=== PATIENT | female | born 1970 | race Caucasian/White ===

== ENCOUNTER 2020-04-10 12:48 | Emergency (ER) | payer BC ==
[2020-04-10] MEDS ORDERED: Sodium Chloride 0.9% 10 ML Syringe FLUSH PRN (13:03)
--- NOTE | 2020-04-10 13:18 | CT ---
EXAMINATION: Head wo Cont SEX: Female AGE: 49 years CLINICAL HISTORY: 49-year-old female with three-hour history of slurred speech and right-sided numbness. stroke code (patient scan 1303 hours; interpretation 1315 hours) Scan technique: Volume acquisition of data emergency unenhanced CT scan of the head and brain obtained with patient lying supine on the Siemens multislice scanner [place], [place]. All data archived in the PACS system for storage, reformatting and study (bone/brain windows). INTERPRETATION: 1. Subtle tiny areas of decreased attenuation scattered in the periventricular white matter of both hemispheres consistent with microvascular ischemic disease. No surrounding edema or mass effect. 2. No sign of acute intracerebral, intraventricular or subarachnoid bleed. 3. No supratentorial or posterior fossa mass lesion. 4. No hydrocephalus. 5. Uniformly thick bony calvarium and symmetric clear pneumatization of the paranasal/mastoid sinuses. 6. No skull fracture, underlying brain contusion or abnormal extracerebral/intracranial epidural or subdural hematoma. CONCLUSION: Microvascular ischemic changes. No intracranial mass, hydrocephalus or bleed. 1. CONCLUSION:
[2020-04-10 13:34] LABS: ANION GAP 11.7 mEq/L (7-13); CHLORIDE,CL 105 mmol/L (98-107); SODIUM,NA 141 mmol/L (136-145)
[2020-04-10] MEDS ORDERED: Aspirin 81 MG Tab.Chew PO ONE (13:53)
[2020-04-10 14:30] LABS: PTT,PARTIAL THROMBOPLSTIN TIME 25.1 SEC (22.0-34.0)
--- NOTE | 2020-04-11 14:21 | EDM.PDOC ---
ED HPI GENERAL MEDICAL PROBLEM - General Chief Complaint: Neuro Symptoms/Deficits Stated Complaint: ONSETS OF NUMBNESS RIGHT ARM RIGHT LEG Time Seen by Provider: 04/10/20 15:10 Source of Information: Reports: Patient History Limitations: Reports: No Limitations - History of Present Illness INITIAL COMMENTS - FREE TEXT/NARRATIVE: Patient comes emergency department today with complaints of right-sided pain and weakness. This patient acutely at 1015 today suddenly had some altered sensation of her right arm and her right leg. It was difficult for her to hold a pen into her right is normal. Her right leg felt "funny". She also felt like she had some shooting pain in her arm and her leg. Shooting pain is resolved prior to arrival. She also feels that it is hard for her to get the words out that she wants to say. She denies any confusion. No headache. No visual acuity changes. No diplopia. No head neck or back trauma. No chest pain or shortness of breath or difficulty breathing. No palpitations. No syncope. No cough or congestion. No fever no chills. No COVID exposure no COVID concerns. No abdominal pain nausea or vomiting. No hematuria dysuria or urinary frequency. She does have a history of migraines. She does not have a headache or any of her typical migraine symptoms. She just recently discontinued her Topamax and is started on Botox injections for her migraines. She has never had any paresthesias such as this in the past when she has had a migraine. - Related Data Allergies Allergy/AdvReac Type Severity Reaction Status Date / Time No Known Allergies Allergy Verified 04/10/20 14:18 Home Meds: Home Meds Levothyroxine 112 mcg PO ACBREAKFAST 04/10/20 [History] Liothyronine [Cytomel] 5 mcg PO DAILY 04/10/20 [History] Progesterone, Micronized [Progesterone] 100 mg PO DAILY 04/10/20 [History] Propranolol [Inderal LA 24 Hr] 80 mg PO DAILY 04/10/20 [History] SUMAtriptan [Imitrex] 50 mg PO DAILY PRN 04/10/20 [History] Past Medical History Cardiovascular History: Reports: Hypertension Genitourinary History: Reports: Other (See Below) Other Genitourinary History: diet controlled diabetic Endocrine/Metabolic History: Reports: Hypothyroidism Social & Family History - Family History Family Medical History: Unobtainable Cardiac: Reports: [place] Neurological: Reports: CVA - Tobacco Use Smoking Status *Q: Never Smoker Second Hand Smoke Exposure: No - Caffeine Use Caffeine Use: Reports: Coffee - Recreational Drug Use Recreational Drug Use: No ED ROS GENERAL - Review of Systems Review Of Systems: Comprehensive ROS is negative, except as noted in HPI. ED EXAM, NEURO - Physical Exam Exam: See Below Exam Limited By: No Limitations General Appearance: Alert, WD/WN, No Apparent Distress Ears: Normal External Exam Nose: Normal Inspection Throat/Mouth: Normal Inspection Head Exam: Atraumatic, Normocephalic Neck: Normal Inspection, Supple, Non-Tender, Full Range of Motion Respiratory/Chest: No Respiratory Distress, Lungs Clear, Normal Breath Sounds, N o Accessory Muscle Use, Chest Non-Tender Cardiovascular: Normal Peripheral Pulses, Regular Rate, Rhythm GI/Abdominal: Normal Bowel Sounds, Soft, Non-Tender (Female) Exam: Deferred Rectal (Female) Exam: Deferred Neurological: Alert, Normal Mood/Affect, Normal Dorsiflexion, CN II-XII Intact, Normal Plantar Flexion, Normal Gait, Normal Reflexes, No Motor/Sensory Deficits, Oriented x 3, Other (NIH stroke scale of 0. ) Back Exam: Normal Inspection, Full Range of Motion Extremities: Normal Inspection, Normal Range of Motion, Non-Tender, No Pedal Edema, Normal Capillary Refill Psychiatric: Normal Affect, Normal Mood Skin Exam: Warm, Dry, Intact, Normal Color, No Rash EKG INTERPRETATION EKG Date: 04/11/20 Time: 13:20 Rhythm: NSR Rate (Beats/Min): 60 [place]: Normal P-Wave: Present QRS: Normal ST-T: Normal QT: Normal Course - Vital Signs Last Recorded V/S: Last Vital Signs Temp 97.9 F 04/10/20 13:10 Pulse 66 04/10/20 13:10 Resp 16 04/10/20 13:10 BP 130/78 04/10/20 13:10 Pulse Ox 99 04/10/20 13:10 - Orders/Labs/Meds Labs: Laboratory Tests 04/10/20 04/10/20 04/10/20 Range/Units 13:04 13:06 13:06 WBC 7.8 (5.0-10.0) 10^3/uL RBC 4.14 L (4.2-5.4) 10^6/uL Hgb 13.3 (12.0-16.0) g/dL Hct 39.4 (37.0-47.0) % MCV 95.2 (80-100) fL MCH 32.1 (27.0-34.0) pg MCHC 33.8 (33.0-35.0) g/dL Plt Count 268 (150-450) 10^3/uL Neut % (Auto) 58.9 (42.2-75.2) % Lymph % (Auto) 29.4 (20.5-50.1) % [place] % (Auto) 9.8 H (2-8) % Eos % (Auto) 1.4 (1.0-3.0) % Baso % (Auto) 0.5 (0.0-1.0) % PT 9.7 (9.0-12.0) SEC INR 1.0 (0.9-1.2) APTT 25.1 (22.0-34.0) SEC Sodium (136-145) mmol/L Potassium (3.5-5.1) mmol/L Chloride (98-107) mmol/L Carbon Dioxide (21-32) mmol/L Anion Gap (7-13) mEq/L BUN (7-18) mg/dL Creatinine (0.55-1.02) mg/dL Est Cr Clr Drug Dosing Estimated GFR (MDRD) BUN/Creatinine Ratio (No establ ref range) Glucose (74-99) mg/dL POC Glucose 93 (70-105) mg/dl Calcium (8.5-10.1) mg/dL Magnesium (1.8-2.4) mg/dL Total Bilirubin (0.2-1.0) mg/dL AST (15-37) U/L ALT (14-59) U/L Alkaline Phosphatase (46-116) U/L Troponin I (0.000-0.056) ng/mL Total Protein (6.4-8.2) g/dL Albumin (3.4-5.0) g/dL Globulin Albumin/Globulin Ratio 04/10/20 Range/Units 13:06 WBC (5.0-10.0) 10^3/uL RBC (4.2-5.4) 10^6/uL Hgb (12.0-16.0) g/dL Hct (37.0-47.0) % MCV (80-100) fL MCH (27.0-34.0) pg MCHC (33.0-35.0) g/dL Plt Count (150-450) 10^3/uL Neut % (Auto) (42.2-75.2) % Lymph % (Auto) (20.5-50.1) % [place] % (Auto) (2-8) % Eos % (Auto) (1.0-3.0) % Baso % (Auto) (0.0-1.0) % PT (9.0-12.0) SEC INR (0.9-1.2) APTT (22.0-34.0) SEC Sodium 141 (136-145) mmol/L Potassium 3.7 (3.5-5.1) mmol/L Chloride 105 (98-107) mmol/L Carbon Dioxide 28 (21-32) mmol/L Anion Gap 11.7 (7-13) mEq/L BUN 14 (7-18) mg/dL Creatinine 0.78 (0.55-1.02) mg/dL Est Cr Clr Drug Dosing TNP Estimated GFR (MDRD) > 60 BUN/Creatinine Ratio 17.9 (No establ ref range) Glucose 96 (74-99) mg/dL POC Glucose (70-105) mg/dl Calcium 8.7 (8.5-10.1) mg/dL Magnesium 2.1 (1.8-2.4) mg/dL Total Bilirubin 0.3 (0.2-1.0) mg/dL AST 25 (15-37) U/L ALT 26 (14-59) U/L Alkaline Phosphatase 66 (46-116) U/L Troponin I < 0.017 (0.000-0.056) ng/mL Total Protein 7.5 (6.4-8.2) g/dL Albumin 3.8 (3.4-5.0) g/dL Globulin 3.7 Albumin/Globulin Ratio 1.0 Meds: Medications Discontinued Medications Generic Name Dose Route Start Last Admin Trade Name Freq PRN Reason Stop Dose Admin Aspirin 81 mg 04/10/20 13:53 04/10/20 14:15 Aspirin PO 04/10/20 13:54 81 mg ONETIME ONE Administration Sodium Chloride 10 ml 04/10/20 13:03 04/10/20 14:15 Saline Flush FLUSH 10 ml ASDIRECTED PRN Administration Keep Vein Open - Radiology Interpretation Free Text/Narrative:: CT of the head per radiology. No intercranial mass hydrocephalus or bleed. Subtle tiny areas of decreased attenuation scattered in the zach-ventricular white matter of both hemispheres consistent with microvascular ischemic disease no surrounding edema or mass-effect. - Re-Assessments/Exams Free Text/Narrative Re-Assessment/Exam: 04/11/20 Due to the patient's presentation and concerns of altered sensation to her right arm and right lower extremity as well as alterations of fine motor skills. A stroke code was called. EKG shows a normal sinus rhythm in the rate in the 60s without any ST elevation or depression. Bedside glucose is appropriate. Emergent CT scan of the head shows shows no intracranial mass hydrocephalus or bleed. Some subtle tiny areas of decreased attenuation in the periventricular white matter bilaterally consistent with microvascular ischemic changes. NIH stroke scale is 0 I called and spoke with Dr. Chun the neurologist apron trimmer at the stroke center in [place]. HPI ER COURSE findings and concerns were relayed to him. He would like a baby aspirin given and to be transfered to [place] further care and workup. I discussed the concerns of the changes of her neurological status with the patient. Although her NIH stroke scale is 0 we would still need an MRI to ensure that she is not having some type of ischemic event. She is understanding of this her questions are answered and she is comfortable with transfer to [facility] at this time. Departure - Departure Time of Disposition: 14:30 Disposition: DC/Tfer to Acute Hospital 02 Clinical Impression: CVA (cerebral vascular accident) Qualifiers: CVA mechanism: unspecified Qualified Code(s): I63.9 - Cerebral infarction, unspecified - Discharge Information Referrals: Carmen Recio NP [Primary Care Provider] - Forms: ED Department Discharge Sepsis Event Note (ED) - Evaluation Sepsis Screening Result: No Definite Risk
== END 2020-04-10 15:10 ==
LOC: DL.ED 12:48
DX: I63.9 Cerebral infarction, unspecified (principal); I10 Essential (primary) hypertension; E03.9 Hypothyroidism, unspecified; E11.9 Type 2 diabetes mellitus without complications; Z79.899 Other long term (current) drug therapy
CPT/HCPCS: 36415; 70450; 80053; 82962; 83735; 84484; 85025; 85610; 85730; 93005; 99285-25; A9270-GY

== ENCOUNTER 2020-06-09 08:14 | Day surgery (SDC) | payer BC ==
[2020-06-09] MEDS ORDERED: Sodium Chloride 0.9% 1,000 ML IV ONE (08:56)
[2020-06-09] MEDS ORDERED: fentaNYL 100 MCG/2 ML SDV IVPUSH ONE ×2 (08:56→10:23)
--- NOTE | 2020-06-09 09:03 | EDM.PDOC ---
<Jaquelin Garcia - Last Filed: 06/09/20 14:12> ED HPI GENERAL MEDICAL PROBLEM - General Chief Complaint: Abdominal Pain Stated Complaint: LOWER RIGHT ABDOMINAL PAIN Time Seen by Provider: 06/09/20 08:50 Source of Information: Reports: Patient, RN, RN Notes Reviewed History Limitations: Reports: No Limitations - History of Present Illness INITIAL COMMENTS - FREE TEXT/NARRATIVE: 50 year old female presents to ED ambulatory with c/o RLQ pain since yesterday am around 1100. reports pain as a sharp, stabbing pain, rates 8/10, pain has been constant since onset. states she took some ibuprofen and applied a heating pad with minimal relief. pain with position adjustment/movement. reports a low grade fever of 99F yesterday, notes chills this am. denies pain radiation. LBM 11, normal bowel movement. denies n/v/d or constipation, denies hematemesis, hematochezia, or dysuria/hematuria. reports C-sections as only surgical hx. reports hx of migraines. last oral intake per pt report was 3 am. Onset: Other Onset Date: 06/08/20 Onset Time: 11:00 Location: Reports: Abdomen Quality: Reports: Sharp, Stabbing Severity: Severe Treatments RECREATIONAL THERAPIST: Reports: Heat Therapy, NSAIDS Right Lower Abdomen Pain Score (Numeric/FACES): 8 - Related Data Allergies Allergy/AdvReac Type Severity Reaction Status Date / Time No Known Allergies Allergy Verified 06/09/20 08:25 Home Meds: Home Meds Levothyroxine 112 mcg PO ACBREAKFAST 04/10/20 [History] Liothyronine [Cytomel] 5 mcg PO DAILY 04/10/20 [History] Progesterone, Micronized [Progesterone] 100 mg PO DAILY 04/10/20 [History] SUMAtriptan [Imitrex] 50 mg PO DAILY PRN 04/10/20 [History] Ezetimibe 10 mg PO DAILY 06/09/20 [History] Ubrogepant [Ubrelvy] 100 mg PO ASDIRECTED PRN 06/09/20 [History] atorvaSTATin [Lipitor] 40 mg PO DAILY 06/09/20 [History] metFORMIN HCl [Metformin HCl ER] 500 mg PO DAILY 06/09/20 [History] Past Medical History HEENT History: Reports: None Cardiovascular History: Reports: Hypertension Respiratory History: Reports: None Gastrointestinal History: Reports: None Genitourinary History: Reports: Other (See Below) Other Genitourinary History: diet controlled diabetic 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: Reports: None Musculoskeletal History: Reports: None Neurological History: Reports: None Psychiatric History: Reports: None Endocrine/Metabolic History: Reports: Hypothyroidism Hematologic History: Reports: None Immunologic History: Reports: None Oncologic (Cancer) History: Reports: None Dermatologic History: Reports: None - Infectious Disease History Infectious Disease History: Reports: None - Past Surgical History Head Surgeries/Procedures: Reports: None Social & Family History - Family History Family Medical History: Unobtainable Cardiac: Reports: [place] Neurological: Reports: CVA - Tobacco Use Tobacco Use Status *Q: Never Tobacco User Second Hand Smoke Exposure: No - Caffeine Use Caffeine Use: Reports: Tea - Alcohol Use Days Per Week of Alcohol Use: 4 Number of Drinks Per Day: 2 Total Drinks Per Week: 8 - Recreational Drug Use Recreational Drug Use: No ED ROS GENERAL - Review of Systems Review Of Systems: Comprehensive ROS is negative, except as noted in HPI. ED EXAM, GI/ABD - Physical Exam Exam: See Below Exam Limited By: No Limitations General Appearance: Alert, WD/WN, No Apparent Distress Eyes: Bilateral: Normal Appearance, EOMI Ears: Normal External Exam, Hearing Grossly Normal Nose: Normal Inspection, No Blood Throat/Mouth: Normal Inspection, Normal Voice, No Airway Compromise Head: Atraumatic, Normocephalic Neck: Normal Inspection, Supple, Non-Tender, Full Range of Motion Respiratory/Chest: No Respiratory Distress, Lungs Clear, Normal Breath Sounds, Chest Non-Tender Cardiovascular: Normal Peripheral Pulses, Regular Rate, Rhythm, No Edema, No Murmur GI/Abdominal Exam: Soft, No Distention, Guarding, Rebound, Tender, Abnormal Bowel Sounds (hypoactive RLQ, active LLQ). No: Non-Tender (Female) Exam: Deferred Rectal (Female) Exam: Deferred Back Exam: Normal Inspection, Full Range of Motion. No: CVA Tenderness (R) Extremities: Normal Inspection, Normal Range of Motion, Non-Tender, No Pedal Edema, Normal Capillary Refill Neurological: Alert, Oriented, CN II-XII Intact, Normal Cognition, No Motor/Sensory Deficits Psychiatric: Normal Affect, Normal Mood, Tearful (with pain) Skin Exam: Warm, Dry, Intact, Normal Color Lymphatic: No Adenopathy Departure - Departure Time of Disposition: 12:28 Disposition: DC/Tfer to Other 70 Clinical Impression: Appendicitis Qualifiers: Appendicitis type: acute appendicitis Acute appendicitis type: with localized peritonitis Appendicitis gangrene presence: without gangrene Appendicitis perforation presence: without perforation Appendicitis abscess presence: without abscess Qualified Code(s): K35.30 - Acute appendicitis with localized periton itis, without perforation or gangrene - Discharge Information Sepsis Event Note (ED) - Evaluation Sepsis Screening Result: No Definite Risk <Gayla Chavis - Last Filed: 06/09/20 14:44> Course - Vital Signs Last Recorded V/S: Last Vital Signs Temp 98.0 F 06/09/20 08:31 Pulse 80 06/09/20 13:55 Resp 14 06/09/20 13:55 BP 117/51 L 06/09/20 13:55 Pulse Ox 92 L 06/09/20 13:55 - Orders/Labs/Meds Orders: Active Orders 24 hr Category Date Time Status Patient Status [ADT] Routine ADT 06/09/20 13:29 Active Patient Status [ADT] Routine ADT 06/09/20 13:30 Active Ambulate [RC] ASDIRECTED Care 06/09/20 13:30 Active Antiembolic Devices [RC] PER UNIT ROUTINE Care 06/09/20 13:34 Active Oxygen Therapy [RC] PRN Care 06/09/20 13:30 Active Pulse Oximetry [RC] CONTINUOUS Care 06/09/20 13:30 Active RT Incentive Spirometry [RC] ASDIRECTED Care 06/09/20 13:30 Active Vital Signs [RC] PER UNIT ROUTINE Care 06/09/20 13:30 Active Full Liquid Diet [DIET] Diet 06/09/20 Dinner Active CULTURE BLOOD [BC] Stat Lab 06/09/20 09:22 Received CULTURE BLOOD [BC] Stat Lab 06/09/20 09:26 Results CULTURE URINE [RM] Stat Lab 06/09/20 09:18 Received Acetaminophen/oxyCODONE [Percocet 325-5 MG] Med 06/09/20 13:30 Active 1 tab PO Q4H PRN Morphine Med 06/09/20 13:30 Active 2 mg IVPUSH Q1H PRN Sodium Chloride 0.9% [Saline Flush] Med 06/09/20 13:34 Active 10 ml FLUSH ASDIRECTED PRN Blood Culture x2 Reflex Set [OM.PC] Stat Oth 06/09/20 08:56 Ordered Convert IV to Saline Lock [OM.PC] Routine Oth 06/09/20 13:34 Ordered Sequential Compression Device [OM.PC] Routine Oth 06/09/20 13:34 Ordered Resuscitation Status Routine Resus Stat 06/09/20 13:30 Ordered Medication Orders Morphine Sulfate (Morphine) 2 mg IVPUSH Q1H PRN PRN Reason: Pain (severe 7-10) Oxycodone/Acetaminophen (Percocet 325-5 Mg) 1 tab PO Q4H PRN PRN Reason: Pain (moderate 4-6) Sodium Chloride (Saline Flush) 10 ml FLUSH ASDIRECTED PRN PRN Reason: Keep Vein Open Labs: Laboratory Tests 06/09/20 06/09/20 06/09/20 Range/Units 09:18 09:18 09:22 WBC 13.7 H (5.0-10.0) 10^3/uL RBC 4.14 L (4.2-5.4) 10^6/uL Hgb 13.2 (12.0-16.0) g/dL Hct 38.8 (37.0-47.0) % MCV 93.7 (80-100) fL MCH 31.9 (27.0-34.0) pg MCHC 34.0 (33.0-35.0) g/dL Plt Count 320 (150-450) 10^3/uL Neut % (Auto) 78.3 H (42.2-75.2) % Lymph % (Auto) 10.6 L (20.5-50.1) % [place] % (Auto) 10.6 H (2-8) % Eos % (Auto) 0.2 L (1.0-3.0) % Baso % (Auto) 0.3 (0.0-1.0) % Sodium (136-145) mmol/L Potassium (3.5-5.1) mmol/L Chloride (98-107) mmol/L Carbon Dioxide (21-32) mmol/L Anion Gap (7-13) mEq/L BUN (7-18) mg/dL Creatinine (0.55-1.02) mg/dL Est Cr Clr Drug Dosing mL/min Estimated GFR (MDRD) BUN/Creatinine Ratio (No establ ref range) Glucose (74-99) mg/dL Lactic Acid (0.4-2.0) mmol/L Calcium (8.5-10.1) mg/dL Total Bilirubin (0.2-1.0) mg/dL AST (15-37) U/L ALT (14-59) U/L Alkaline Phosphatase (46-116) U/L Total Protein (6.4-8.2) g/dL Albumin (3.4-5.0) g/dL Globulin Albumin/Globulin Ratio Urine Color Yellow (YELLOW) Urine Appearance Clear (CLEAR) Urine pH 8.5 (5.0-9.0) Ur Specific [place] 1.020 (1.005-1.030) Urine Protein Negative (NEGATIVE) Urine Glucose (UA) Negative (NEGATIVE) Urine Ketones 15 H (NEGATIVE) Urine Occult Blood Trace-intact H (NEGATIVE) Urine Nitrite Positive H (NEGATIVE) Urine Bilirubin Negative (NEGATIVE) Urine Urobilinogen 0.2 (0.2-1.0) mg/dL Ur Leukocyte Esterase Negative (NEGATIVE) Urine RBC 0-5 /HPF Urine WBC Not seen (0-5/HPF) /HPF Ur Epithelial Cells Few (NOT SEEN) /HPF Urine Bacteria Moderate H (0-FEW/HPF) /HPF Urine HCG, Qual Negative SARS CoV-2 RNA Rapid MARIBEL (NEGATIVE) 06/09/20 06/09/20 06/09/20 Range/Units 09:22 09:22 11:26 WBC (5.0-10.0) 10^3/uL RBC (4.2-5.4) 10^6/uL Hgb (12.0-16.0) g/dL Hct (37.0-47.0) % MCV (80-100) fL MCH (27.0-34.0) pg MCHC (33.0-35.0) g/dL Plt Count (150-450) 10^3/uL Neut % (Auto) (42.2-75.2) % Lymph % (Auto) (20.5-50.1) % [place] % (Auto) (2-8) % Eos % (Auto) (1.0-3.0) % Baso % (Auto) (0.0-1.0) % Sodium 137 (136-145) mmol/L Potassium 3.6 (3.5-5.1) mmol/L Chloride 101 (98-107) mmol/L Carbon Dioxide 27 (21-32) mmol/L Anion Gap 12.6 (7-13) mEq/L BUN 9 (7-18) mg/dL Creatinine 0.90 (0.55-1.02) mg/dL Est Cr Clr Drug Dosing 57.06 mL/min Estimated GFR (MDRD) > 60 BUN/Creatinine Ratio 10.0 (No establ ref range) Glucose 112 H (74-99) mg/dL Lactic Acid 1.0 (0.4-2.0) mmol/L Calcium 9.1 (8.5-10.1) mg/dL Total Bilirubin 0.8 (0.2-1.0) mg/dL AST 16 (15-37) U/L ALT 24 (14-59) U/L Alkaline Phosphatase 76 (46-116) U/L Total Protein 7.3 (6.4-8.2) g/dL Albumin 3.5 (3.4-5.0) g/dL Globulin 3.8 Albumin/Globulin Ratio 0.9 Urine Color (YELLOW) Urine Appearance (CLEAR) Urine pH (5.0-9.0) Ur Specific [place] (1.005-1.030) Urine Protein (NEGATIVE) Urine Glucose (UA) (NEGATIVE) Urine Ketones (NEGATIVE) Urine Occult Blood (NEGATIVE) Urine Nitrite (NEGATIVE) Urine Bilirubin (NEGATIVE) Urine Urobilinogen (0.2-1.0) mg/dL Ur Leukocyte Esterase (NEGATIVE) Urine RBC /HPF Urine WBC (0-5/HPF) /HPF Ur Epithelial Cells (NOT SEEN) /HPF Urine Bacteria (0-FEW/HPF) /HPF Urine HCG, Qual SARS CoV-2 RNA Rapid MARIBEL Negative (NEGATIVE) Meds: Medications Generic Name Dose Route Start Last Admin Trade Name Freq PRN Reason Stop Dose Admin Morphine Sulfate 2 mg 06/09/20 13:30 Morphine IVPUSH Q1H PRN Pain (severe 7-10) Oxycodone/Acetaminophen 1 tab 06/09/20 13:30 Percocet 325-5 Mg PO Q4H PRN Pain (moderate 4-6) Sodium Chloride 10 ml 06/09/20 13:34 Saline Flush FLUSH ASDIRECTED PRN Keep Vein Open Discontinued Medications Generic Name Dose Route Start Last Admin Trade Name Berkley PRN Reason Stop Dose Admin Fentanyl 50 mcg 06/09/20 08:56 06/09/20 09:10 Sublimaze IVPUSH 06/09/20 08:57 50 mcg ONETIME ONE Administration Fentanyl 50 mcg 06/09/20 10:23 06/09/20 10:31 Sublimaze IVPUSH 06/09/20 10:24 50 mcg ONETIME ONE Administration Sodium Chloride 1,000 mls @ 999 mls/hr 06/09/20 08:56 06/09/20 09:10 Normal Saline IV 06/09/20 09:56 999 mls/hr .BOLUS ONE Administration Piperacillin Sod/Tazobactam 100 mls @ 200 mls/hr 06/09/20 11:39 06/09/20 12:28 Sod 3.375 gm/ Sodium Chloride IV 06/09/20 12:08 200 mls/hr ONETIME ONE Administration Iopamidol 100 ml 06/09/20 10:36 06/09/20 10:57 Isovue-300 (61%) IVPUSH 06/09/20 10:37 75 ml ONETIME ONE Administration - Radiology Interpretation Free Text/Narrative:: CT abdomen/pelvis with contrast: Acute appendicitis The radiologist report - Re-Assessments/Exams Free Text/Narrative Re-Assessment/Exam: 06/09/20 09:18 I personally performed or re-performed the physical examination and medical decision making. I have verified all student documentation or findings, including history, physical exam and/or medical decision making. 06/09/20 11:41 Dr. Alcala was here to evaluate the patient. Patient will be taken to the OR. Departure - Departure Condition: Fair - Discharge Information *PRESCRIPTION DRUG MONITORING PROGRAM REVIEWED*: No *COPY OF PRESCRIPTION DRUG MONITORING REPORT IN PATIENT KENNEDY: No Sepsis Event Note (ED) - Focused Exam Vital Signs: Vital Signs Temp Pulse Pulse Resp BP Pulse Ox Pulse Ox 06/09/20 13:55 80 14 117/51 L 92 L 06/09/20 13:50 81 16 104/56 L 92 L 06/09/20 13:49 93 L 06/09/20 13:45 84 17 91/52 L 100 06/09/20 13:44 100 06/09/20 13:40 83 16 92/48 L 100 06/09/20 13:35 78 14 92/53 L 100 06/09/20 13:30 80 14 86/52 L 100 06/09/20 13:27 79 15 83/50 L 100 06/09/20 13:26 100 06/09/20 08:31 98.0 F 98 16 139/91 H 98
[2020-06-09 09:51] LABS: ANION GAP 12.6 mEq/L (7-13); CHLORIDE,CL 101 mmol/L (98-107); SODIUM,NA 137 mmol/L (136-145)
[2020-06-09] MEDS ORDERED: Iopamidol 612 MG/ML 100 ML Bottle IVPUSH ONE (10:36)
--- NOTE | 2020-06-09 11:21 | CT ---
EXAMINATION: Abdomen Pelvis w Cont SEX: Female AGE: 50 years CLINICAL HISTORY: 50-year-old 165 pound afebrile female with RIGHT LOWER QUADRANT PAIN. WBC 13,700. Scan technique: Volume acquisition of data from the abdomen and pelvis obtained without oral contrast but during the intravenous administration 75 cc nonionic Isovue contrast 3 cc/s via injector while patient was lying supine on the Siemens multi slice scanner [place], [place]. All data archived in the PACS system for storage, reformatting axial/sagittal/coronal planes and study. Interpretation: Abnormal. 1. *Inflamed (wall thickening) appendix RLQ with calcified appendicolith and surrounding inflammatory "dirty" periappendiceal fat. No abscess or periappendiceal fluid. No sign of mechanical bowel obstruction. 2. Gallbladder, liver, stomach (small hiatus hernia), spleen, pancreas and adrenal glands unremarkable. 3. No sign of abdominal or pelvic mass lesion (retroverted uterus). No mesenteric or retroperitoneal lymphadenopathy. No sign of mechanical bowel obstruction, ascites or free intraperitoneal air. 4. Normal caliber aortoiliac vessels. Mild retrolisthesis L4 and signs of chronic L4-5 disc disease. 5. Lung bases clear. Normal cardiac silhouette. No pericardial or pleural effusion. CONCLUSION: ACUTE APPENDICITIS.
[2020-06-09] MEDS ORDERED: Piperacillin/Tazobactam 3.375 GM in Sodium Chloride 0.9% 100 ML IV ONE (11:39)
--- NOTE | 2020-06-09 12:43 | HP ---
INTRODUCTION: This 50-year-old female has had a day-long history of abdominal pain now maximally located in the right lower quadrant. She had moderate amount of pain and presented to the emergency room for evaluation. She had a CT scan that showed that it was consistent with appendicitis. She has elevated white blood cell count. ALLERGIES: The patient has no known drug allergies. CURRENT MEDICATIONS: Metformin, Lipitor, Imitrex, Ubrelvy, progesterone, Cytomel, and levothyroxine. PAST SURGICAL HISTORY: Includes section x3. FAMILY HISTORY AND SOCIAL HISTORY: The patient is . She lives in [place]. 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 REVIEW OF SYSTEMS: Positive for hypothyroidism, type 2 diabetes; otherwise, systems are negative. PHYSICAL EXAMINATION: HEENT: Normal. Chest: Lungs are clear bilaterally. Heart: Normal sinus rhythm. Abdomen: Soft in the upper quadrant, maximally tender in the right lower quadrant. Positive rebound and positive Rovsing sign. Extremities: Normal. Neurologic: Intact. She had a history few months ago of right arm and leg numbness that have been worked up, but was negative for anything truly neurological. ASSESSMENT: Acute appendicitis. PLAN: COVID and tests are negative. I discussed the risks, benefits, and expected outcomes of a laparoscopic appendectomy with this patient. We will give her preoperative dose of Zosyn and proceed to the operating room today. [facility] /[id number]
[2020-06-09] MEDS ORDERED: Morphine 2 MG/ML SYRINGE IVPUSH PRN (13:30)
[2020-06-09] MEDS ORDERED: Sodium Chloride 0.9% 10 ML Syringe FLUSH PRN (13:34)
[2020-06-09] MEDS: Acetaminophen/oxyCODONE 325-5 MG Tab PO PRN ×2 (16:00→21:03)
--- NOTE | 2020-06-10 07:53 | PCM.SN.2 ---
- Free Text/Narrative Note: Stable POD #1. Pain controlled. PO adequate. Ambulateds well. Wounds clean and dry. Can discharge today. No restrictions. FU with her PCP or clinic as needed. Resume normal diet and activity.
[2020-06-10] MEDS: Acetaminophen/oxyCODONE 325-5 MG Tab PO PRN (11:05)
--- NOTE | 2020-06-10 12:24 | OR ---
DATE: 06/09/2020 PREOPERATIVE DIAGNOSIS: Acute appendicitis. POSTOPERATIVE DIAGNOSIS: Acute appendicitis. PROCEDURE: Laparoscopic appendectomy. ANESTHESIA: General. ESTIMATED BLOOD LOSS: Minimal. SPECIMEN: Appendix. INDICATION FOR PROCEDURE: This 50-year-old female presented to the emergency room with right lower quadrant abdominal pain. She had an elevated white blood cell count and a CT scan showed acute appendicitis. PROCEDURE IN DETAIL: After adequate preparation, an infraumbilical 5 mm incision was made and a trocar placed and a Veress needle placed intra- abdominally for insufflation. Two other midline trocars were then placed under direct vision. Examination of the abdomen did show acute appendicitis. This appendix had attached itself to the anterior body wall and with some blunt dissection was able to be taken off that and the surrounding intestine and omentum dissected free to expose the appendix. A stapling device was used to transect the appendix at the base with a blue load. The mesoappendix was then simply cauterized to free up the rest of the appendix. No other intraabdominal abnormalities were noted. The appendix was placed in a sterile retrieval bag and brought out through the suprapubic trocar site. The abdomen was desufflated. Skin closed with 4-0 Monocryl. [facility] /[id number]
== END 2020-06-10 11:52 | disposition home or self-care (01) ==
LOC: DL.SDS 08:14
PROVIDERS: ATTEND Surgery
DX: K35.33 Acute appendicitis with perforation, localized peritonitis, and gangrene, with abscess (principal); E11.9 Type 2 diabetes mellitus without complications; E03.9 Hypothyroidism, unspecified; Z79.890 Hormone replacement therapy; Z79.899 Other long term (current) drug therapy; Z79.84 Long term (current) use of oral hypoglycemic drugs; Z01.812 Encounter for preprocedural laboratory examination; Z20.828 Contact with and (suspected) exposure to other viral communicable diseases
CPT/HCPCS: 36415; 44970; 74177; 80053; 81001; 81003; 81025; 83605; 85025; 87040; 87086; 87088; 87186; 87635; A9270; J2543; J3010; J7030; J7050; J7120; Q9967; 00840; U0002